=== PATIENT | female | born 2000 | race Caucasian/White ===

== ENCOUNTER 2022-08-10 12:00 | Emergency (ER) | payer OTHER, BC ==
[~2022-08-10] VITALS: Ht 167 cm; Wt 68.0 kg
[2022-08-10] MEDS ORDERED: IBUPROFEN 600 MG (MOTRIN) TAB PO ONE (12:30)
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
--- NOTE | 2022-08-10 12:55 | Diagnostic Imaging Report ---
INDICATION: Left forearm pain. AP and lateral views of the left forearm are obtained. FINDINGS: No acute fracture or dislocation is identified. No abnormal lytic or sclerotic focus is seen, and there is no radiopaque foreign body. IMPRESSION: No acute abnormality. Dictated by: Dictated on workstation # [id number]
--- NOTE | 2022-08-10 12:55 | Diagnostic Imaging Report ---
INDICATION: Right shoulder pain AP, oblique, and transscapular views of the right shoulder are obtained. No fracture or acute bony abnormality is seen. Joint spaces are unremarkable. IMPRESSION: Negative right shoulder. Dictated by: Dictated on workstation # [id number]
[2022-08-10 12:57] VITALS: BP 113/71
== END 2022-08-10 13:06 | disposition home or self-care (01) ==
LOC: ER 12:07
DX: S50.812A Abrasion of left forearm, initial encounter (principal); T14.8XXA Other injury of unspecified body region, initial encounter; M25.511 Pain in right shoulder; M25.512 Pain in left shoulder; M54.2 Cervicalgia; M54.50 Low back pain, unspecified; V49.40XA Driver injured in collision with unspecified motor vehicles in traffic accident, initial encounter; W22.11XA Striking against or struck by driver side automobile airbag, initial encounter; Y92.410 Unspecified street and highway as the place of occurrence of the external cause
CPT/HCPCS: 73030; 73090